=== PATIENT | female | born 1940 | race Caucasian/White ===

== ENCOUNTER → 2023-05-13 | Outpatient (CLI) | payer MEDICARE, OTHER, SELFPAY ==
[2023-05-13 14:16] LABS: PTHIN 22.5 pg/mL (18.4-80.1)
[2023-05-13 14:19] LABS: ALB/GLOB Ratio 1.2 RATIO (0.9-2.4); AST(SGOT) 22 U/L (15-37); Alanine Aminotransfer ALT/SGPT 50 U/L (13-56); Albumin, Serum 3.6 g/dL (3.2-5.0); Alkaline Phosphatase 60 U/L (45-117); Anion Gap 4 (5-15); BUN 26 mg/dL (7-18); BUN/Creat Ratio 21.1 RATIO (10-20); Calcium,Total 9.2 mg/dL (8.5-10.1); Chloride 106 mmol/L (98-107); Creatinine, Serum 1.23 mg/dL (0.55-1.02); EST Glomerular Filtration Rate 45 mL/min (>60); Est Glom Filt Rate - Afr Amer 54 mL/min (>60); Glucose 129 mg/dL (74-106); Potassium 3.8 mmol/L (3.5-5.1); Protein, Total 6.6 g/dL (6.4-8.2); Sodium Level 140 mmol/L (136-145)
[2023-05-14 08:57] LABS: Vitamin D,25 Hydroxy 75.7 ng/mL
== END | disposition home or self-care (01) ==
PROVIDERS: PCP Family Medicine; Referring Provider Nurse Practitioner Family; Visit Provider Nurse Practitioner Family
DX: E83.52 Hypercalcemia (principal)
CPT/HCPCS: 36415; 80053; 82306; 82652; 83970

== ENCOUNTER 2025-04-26 14:02 | Outpatient (CLI) | payer MEDICARE, OTHER, SELFPAY ==
[2025-04-26 14:20] VITALS: BP 136/81; PULSE 93; RESP 16; TEMP 36.3; O2SAT 93
[2025-04-26] MEDS: 0.9% NaCl Peripheral Flush Adult IV (14:29)
[2025-04-26 14:51] VITALS: BP 138/79; PULSE 73; RESP 16; TEMP 36.6; O2SAT 97
== END 2025-04-26 23:59 | disposition home or self-care (01) ==
LOC: MEDOUTP 14:03
PROVIDERS: PCP Family Medicine; Referring Provider Internal Medicine Endocrinology, Diabetes & Metabolism; Visit Provider Internal Medicine Endocrinology, Diabetes & Metabolism
DX: M81.0 Age-related osteoporosis without current pathological fracture (principal)
CPT/HCPCS: 96365; A4216; J3489